=== PATIENT | female | born 1935 | race Caucasian/White ===

== ENCOUNTER 2022-04-10 13:31 | Inpatient (IN) ==
[2022-04-10] MEDS: carvediloL 6.25 MG TABLET PO SCH (17:20)
[2022-04-10] MEDS: Insulin LISPRO 300 UNITS/3 ML VIAL SUBQ SCH ×2 (17:21→20:53)
[2022-04-10] MEDS: hydrALAZINE 25 MG TABLET PO SCH (20:55)
[2022-04-10] MEDS: Budesonide/Formoterol 160/4.5 1 PUFF INH IH SCH (21:22)
[2022-04-11 05:27] LABS: Basophils % 0.1 %; Eosinophils % 0.4 %; Hematocrit 31.4 % (35.3-44.9); Hemoglobin 10.2 g/dL (11.5-15.4); Immature Granulocytes % 2.7 % (0-4); Lymphocytes # 1.9 K/mcL (0.6-4.6); Lymphocytes % 26.3 %; Mean Corpuscular HGB Conc 32.5 g/dL (31.6-35.5); Mean Corpuscular Hemoglobin 27.6 pg (28.0-33.3); Mean Corpuscular Volume 84.9 fL (83.0-100.0); Mean Platelet Volume 8.7 fL (9.4-12.4); Monocytes # 1.2 K/mcL (0.0-1.3); Monocytes % 17.2 %; Neutrophils # 3.8 K/mcL (1.6-8.9); Platelet Count 174 K/mcL (140-400); Red Cell Distribution Width 13.3 % (11.5-14.5); Segmented Neutrophils % 53.3 %; White Blood Count 7.1 K/mcL (4.3-11.1)
[2022-04-11 05:48] LABS: Calcium 8.7 mg/dL (8.6-10.3); Potassium 3.7 mEq/L (3.5-5.1)
[2022-04-11] MEDS: Levothyroxine 25 MCG TABLET PO SCH (06:52)
[2022-04-11] MEDS: Insulin LISPRO 300 UNITS/3 ML VIAL SUBQ SCH ×4 (09:32→20:01)
[2022-04-11] MEDS: amLODIPine 5 MG TABLET PO SCH (09:32)
[2022-04-11] MEDS: Ascorbic Acid 500 MG TABLET PO SCH (09:33)
[2022-04-11] MEDS: hydrALAZINE 25 MG TABLET PO SCH ×2 (09:33→20:03)
[2022-04-11] MEDS: Aspirin 81 MG TAB.CHEW PO SCH (09:33)
[2022-04-11] MEDS: allopurinoL 100 MG TABLET PO SCH (09:33)
[2022-04-11] MEDS: Furosemide 20 MG TABLET PO SCH (09:34)
[2022-04-11] MEDS: carvediloL 6.25 MG TABLET PO SCH ×2 (09:34→16:57)
[2022-04-11] MEDS: Tiotropium 10 INH DOSE IH SCH (10:18)
[2022-04-11] MEDS: Budesonide/Formoterol 160/4.5 1 PUFF INH IH SCH ×2 (10:19→20:33)
[2022-04-12] MEDS: Levothyroxine 25 MCG TABLET PO SCH (05:30)
[2022-04-12] MEDS: Insulin LISPRO 300 UNITS/3 ML VIAL SUBQ SCH ×4 (10:06→20:55)
[2022-04-12] MEDS: amLODIPine 5 MG TABLET PO SCH (10:07)
[2022-04-12] MEDS: Furosemide 20 MG TABLET PO SCH (10:07)
[2022-04-12] MEDS: Ascorbic Acid 500 MG TABLET PO SCH (10:07)
[2022-04-12] MEDS: allopurinoL 100 MG TABLET PO SCH (10:07)
[2022-04-12] MEDS: Aspirin 81 MG TAB.CHEW PO SCH (10:08)
[2022-04-12] MEDS: hydrALAZINE 25 MG TABLET PO SCH ×2 (10:08→20:55)
[2022-04-12] MEDS: carvediloL 6.25 MG TABLET PO SCH ×2 (10:08→17:35)
[2022-04-12] MEDS: Tiotropium 10 INH DOSE IH SCH (10:30)
[2022-04-12] MEDS: Budesonide/Formoterol 160/4.5 1 PUFF INH IH SCH ×2 (10:30→20:44)
[2022-04-12] MEDS ORDERED: Hydrocortisone Rectal 2.5% CRM 28 GM TUBE RC PRN (16:58)
[2022-04-13 05:06] LABS: Basophils % 0.3 %; Eosinophils % 0.4 %; Hematocrit 32.2 % (35.3-44.9); Hemoglobin 10.7 g/dL (11.5-15.4); Immature Granulocytes % 5.7 % (0-4); Lymphocytes # 1.8 K/mcL (0.6-4.6); Mean Corpuscular HGB Conc 33.2 g/dL (31.6-35.5); Mean Corpuscular Hemoglobin 27.8 pg (28.0-33.3); Mean Corpuscular Volume 83.6 fL (83.0-100.0); Monocytes # 1.3 K/mcL (0.0-1.3); Monocytes % 13.8 %; Neutrophils # 5.8 K/mcL (1.6-8.9); Platelet Count 200 K/mcL (140-400); Red Blood Count 3.85 M/mcL (3.82-4.97); Red Cell Distribution Width 13.6 % (11.5-14.5); Segmented Neutrophils % 60.8 %; White Blood Count 9.5 K/mcL (4.3-11.1)
[2022-04-13 05:23] LABS: Calcium 8.7 mg/dL (8.6-10.3); Potassium 3.5 mEq/L (3.5-5.1)
[2022-04-13] MEDS: Levothyroxine 25 MCG TABLET PO SCH (06:06)
[2022-04-13] MEDS: Tiotropium 10 INH DOSE IH SCH (07:35)
[2022-04-13] MEDS: Budesonide/Formoterol 160/4.5 1 PUFF INH IH SCH ×2 (07:35→21:37)
[2022-04-13] MEDS ORDERED: Ergocalciferol (VIT D2) 50,000 UNIT (1.25MG) CAP PO SCH ×3 (09:00→10:00)
[2022-04-13] MEDS: Furosemide 20 MG TABLET PO SCH (09:29)
[2022-04-13] MEDS: amLODIPine 5 MG TABLET PO SCH (09:29)
[2022-04-13] MEDS: Aspirin 81 MG TAB.CHEW PO SCH (09:30)
[2022-04-13] MEDS: hydrALAZINE 25 MG TABLET PO SCH (09:30)
[2022-04-13] MEDS: carvediloL 6.25 MG TABLET PO SCH ×2 (09:31→18:01)
[2022-04-13] MEDS: allopurinoL 100 MG TABLET PO SCH (09:31)
[2022-04-13] MEDS: Ascorbic Acid 500 MG TABLET PO SCH (09:32)
[2022-04-13] MEDS: Insulin LISPRO 300 UNITS/3 ML VIAL SUBQ SCH ×4 (09:50→20:41)
[2022-04-13] MEDS: Isosorbide MONOnitrate (24 HR) 30 MG TAB.ER.24H PO SCH (12:34)
[2022-04-14] MEDS: Levothyroxine 25 MCG TABLET PO SCH (05:22)
[2022-04-14] MEDS: Aspirin 81 MG TAB.CHEW PO SCH (08:27)
[2022-04-14] MEDS: carvediloL 6.25 MG TABLET PO SCH ×2 (08:27→17:20)
[2022-04-14] MEDS: Furosemide 20 MG TABLET PO SCH (08:28)
[2022-04-14] MEDS: Isosorbide MONOnitrate (24 HR) 30 MG TAB.ER.24H PO SCH (08:28)
[2022-04-14] MEDS: allopurinoL 100 MG TABLET PO SCH (08:28)
[2022-04-14] MEDS: Ascorbic Acid 500 MG TABLET PO SCH (08:28)
[2022-04-14] MEDS: amLODIPine 5 MG TABLET PO SCH (08:28)
[2022-04-14] MEDS: Insulin LISPRO 300 UNITS/3 ML VIAL SUBQ SCH ×4 (08:29→21:21)
[2022-04-14] MEDS: Tiotropium 10 INH DOSE IH SCH (10:03)
[2022-04-14] MEDS: Budesonide/Formoterol 160/4.5 1 PUFF INH IH SCH ×2 (10:04→20:29)
[2022-04-15 04:04] LABS: Basophils % 0.2 %; Eosinophils % 0.2 %; Hematocrit 30.5 % (35.3-44.9); Hemoglobin 10.1 g/dL (11.5-15.4); Immature Granulocytes % 10.6 % (0-4); Lymphocytes # 1.5 K/mcL (0.6-4.6); Lymphocytes % 15.3 %; Mean Corpuscular HGB Conc 33.1 g/dL (31.6-35.5); Mean Corpuscular Hemoglobin 27.7 pg (28.0-33.3); Mean Corpuscular Volume 83.8 fL (83.0-100.0); Mean Platelet Volume 8.7 fL (9.4-12.4); Monocytes # 1.8 K/mcL (0.0-1.3); Monocytes % 18.8 %; Neutrophils # 5.4 K/mcL (1.6-8.9); Platelet Count 190 K/mcL (140-400); Red Blood Count 3.64 M/mcL (3.82-4.97); Red Cell Distribution Width 13.8 % (11.5-14.5); Segmented Neutrophils % 54.9 %; White Blood Count 9.8 K/mcL (4.3-11.1)
[2022-04-15 04:18] LABS: Calcium 8.3 mg/dL (8.6-10.3); Potassium 3.6 mEq/L (3.5-5.1)
[2022-04-15] MEDS: Levothyroxine 25 MCG TABLET PO SCH (05:05)
[2022-04-15] MEDS: Insulin LISPRO 300 UNITS/3 ML VIAL SUBQ SCH ×4 (07:44→21:53)
[2022-04-15] MEDS: Furosemide 20 MG TABLET PO SCH (08:37)
[2022-04-15] MEDS: amLODIPine 5 MG TABLET PO SCH (08:37)
[2022-04-15] MEDS: Aspirin 81 MG TAB.CHEW PO SCH (08:37)
[2022-04-15] MEDS: Ascorbic Acid 500 MG TABLET PO SCH (08:37)
[2022-04-15] MEDS: Isosorbide MONOnitrate (24 HR) 30 MG TAB.ER.24H PO SCH (08:37)
[2022-04-15] MEDS: allopurinoL 100 MG TABLET PO SCH (08:37)
[2022-04-15] MEDS: carvediloL 6.25 MG TABLET PO SCH ×2 (08:38→16:26)
[2022-04-15] MEDS: Tiotropium 10 INH DOSE IH SCH (10:01)
[2022-04-15] MEDS: Budesonide/Formoterol 160/4.5 1 PUFF INH IH SCH ×2 (10:02→20:29)
[2022-04-16 05:33] VITALS: O2SAT 94
[2022-04-16] MEDS: Levothyroxine 25 MCG TABLET PO SCH (05:40)
[2022-04-16 08:40] LABS: Basophils % 0.2 %; Eosinophils % 0.4 %; Hematocrit 34.1 % (35.3-44.9); Immature Granulocytes % 2.8 % (0-4); Lymphocytes # 1.7 K/mcL (0.6-4.6); Lymphocytes % 15.5 %; Mean Corpuscular HGB Conc 32.3 g/dL (31.6-35.5); Mean Corpuscular Hemoglobin 27.5 pg (28.0-33.3); Mean Corpuscular Volume 85.3 fL (83.0-100.0); Mean Platelet Volume 8.7 fL (9.4-12.4); Monocytes # 2.1 K/mcL (0.0-1.3); Monocytes % 19.4 %; Neutrophils # 6.6 K/mcL (1.6-8.9); Platelet Count 187 K/mcL (140-400); Red Cell Distribution Width 13.9 % (11.5-14.5); Segmented Neutrophils % 61.7 %; White Blood Count 10.7 K/mcL (4.3-11.1)
[2022-04-16] MEDS: Isosorbide MONOnitrate (24 HR) 30 MG TAB.ER.24H PO SCH (08:42)
[2022-04-16] MEDS: Ascorbic Acid 500 MG TABLET PO SCH (08:42)
[2022-04-16] MEDS: Aspirin 81 MG TAB.CHEW PO SCH (08:42)
[2022-04-16] MEDS: allopurinoL 100 MG TABLET PO SCH (08:43)
[2022-04-16] MEDS: carvediloL 6.25 MG TABLET PO SCH (08:43)
[2022-04-16] MEDS: amLODIPine 5 MG TABLET PO SCH (08:43)
[2022-04-16] MEDS: Insulin LISPRO 300 UNITS/3 ML VIAL SUBQ SCH (08:43)
[2022-04-16] MEDS: Furosemide 20 MG TABLET PO SCH (08:43)
[2022-04-16 08:48] VITALS: BP 149/75; PULSE 86; RESP 16; TEMP 98.4
[2022-04-16 08:57] LABS: Albumin 3.1 g/dL (3.5-5.7); Bilirubin,Total 0.6 mg/dL (0.3-1.0); Globulin 3.1 g/dL (2.4-3.5); Magnesium 1.2 mg/dL (1.6-2.6); Potassium 3.5 mEq/L (3.5-5.1); Total Protein 6.2 g/dL (6.4-8.9)
[2022-04-16 09:16] LABS: Platelet Estimate Normal (Normal)
== END 2022-04-16 13:14 | disposition short-term general hospital (02) | DRG 280 ==
LOC: INPGRE 15:40
PROVIDERS: ADMIT Family Medicine; ATTEND Family Medicine